=== PATIENT | female | born 1985 | race Caucasian/White ===

== ENCOUNTER 2016-04-20 20:26 | Emergency (ER) | payer BC ==
[2016-04-20] MEDS ORDERED: DIPH,PERTUSS,TET(ADACEL) VAC/PF 0.5 ML (Tdap) IM ONE (20:41)
--- NOTE | 2016-04-20 20:43 | PDOC ---
Skin Rash/Insect/Abscess HPI - General Chief Complaint: Laceration / Wound Stated Complaint: Finger Laceration Date Seen by Provider: 04/20/16 Time Seen by Provider: 20:42 Source: POSITIVE: Patient, Spouse Exam Limitations: POSITIVE: No limitations Nurse's Notes Reviewed & Considered: Yes - History of Present Illness Initial Comments: Patient comes in today with a laceration to the right fifth finger at the PIP joint. Tonight she was trying to separate dose to make cookies when her knife slipped and she lacerated her right DIP joint of the fifth finger. She has good range of motion and good sensation and good capillary. Have you received a tetanus shot in the past 10 years?: Unknown Body Location Affected: REPORTS: Upper Extremity (R) Timing: REPORTS: Abrupt Duration: 1/2 hour Severity: Mild Quality: REPORTS: "Pain", Sharpness When Exposed: REPORTS: Just Prior to Sx Onset Where Exposed: REPORTS: Home Suspected Etiology: REPORTS: Other Similar Symptoms Previously: No Recent Care Received: REPORTS: Denies Any Prior Injuries Related to Current Complaint?: No - Patient Home Medications Home Medications: Home Medications Levothyroxine Sodium [Synthroid Tab] 125 mcg PO DAILY 11/16/14 - Patient Allergies Allergies/Adverse Reactions: Allergies Allergy/AdvReac Type Severity Reaction Status Date / Time cefaclor [From Ceclor] Allergy Unknown UNSURE Verified 04/20/16 20:46 Penicillins Allergy Unknown UNSURE Verified 04/20/16 20:46 Sulfa (Sulfonamide AdvReac Intermediate UNSURE Verified 04/20/16 20:46 Antibiotics) Past Medical History - heen HEENT History: Denies History Cardiovascular History: Denies History Respiratory History: Denies History Gastrointestinal History: Gallbladder Disease Additional Gastrointestinal History: LAP KAREN Genitourinary History: Denies History Endocrine History: Hypothyroidism Additional Endocrine History: POSSIBLE HOSHIMOTOS Musculoskeletal History: Denies History Prosthesis or Implant: No Neurological History: Denies History Blood Disorders: Denies History Psychiatric History: Denies History History of Sexually Transmitted Diseases: No Cancer History: Denies History History of MDRO: Unknown History of Other Communicable Diseases: No Alcohol Use: Rarely Substance Use Type: None Previous Surgical History: Yes Type / Date of Surgery: GALL BLADDER Anesthesia Reactions: No Malignant Hyperthermia: No Significant Family History: No pertinent family hx Additional Family History: [place] [employer] PARENTS ROS - Limitations ROS Limitations: No Limitations Constitution: REPORTS: Denies Symptoms Cardiovascular: REPORTS: Denies Cardiac Symptoms Respiratory: REPORTS: Denies Resp Symptoms Neurological: REPORTS: Denies Neuro Symptoms Gastrointestinal: REPORTS: Denies GI Symptoms Endocrine: REPORTS: Denies Symptoms Musculoskeletal: REPORTS: Denies MS Symptoms Genitourinary: REPORTS: Denies Symptoms Eyes: REPORTS: Denies Symptoms ENT: REPORTS: Denies Symptoms Skin: REPORTS: Other (Laceration palmar aspect right fifth finger right hand. Laceration is 1 cm.) Lympathic: REPORTS: Denies Lympathic Symptoms Immunologic: POSITIVE: Denies Symptoms Psychiatric: POSITIVE: Denies Psych Symptoms Skin Rash/Insect/Abscess Exam - General Appearance General Appearance: REPORTS: Alert, Cooperative, No Acute Distress - Skin Skin: REPORTS: Warm, Dry, Normal Color, Other (Laceration to the palmar aspect fifth digit right PIP joint) - Extremities Extremity: Non-Tender: (All Extremities), Normal ROM: (All Extremities) Procedures - Laceration/Wound Repair Did patient have a laceration repair: Yes Site of Laceration/Wound: Right fifth finger palmar aspect PIP joint Wound Length (cm): 1 Wound's Depth, Shape: Superficial Time of Suture Placement:: 21:48 Distal CMS: Yes Skin Prep: Betadine Prep, Sterile Drapes Applied Local Anesthesia Used - Indicate Amt Used in Comment: Lidocaine 1%: Yes (3 mL) Wound Explored: Clean Wound Debrided: Minimal Wound Repaired With: Sutures single layer Suture Size/Type: 5:0 Number of Sutures: 3 Drain Placement: No Sterile Dressing Applied?: Yes Splint Applied?: No Sling Applied?: No Skin Rash/Abscess Progress - Patient's Progress Status: POSITIVE: Improved MDM / ED Course: Patient was examined, and soaked in Betadine tea. 1% lidocaine was infiltrated in a ring block at the base of the finger. After allowing adequate time for anesthetic to mature 3 interrupted 5-0 Surgipro sutures were placed with out difficulty resulting in excellent skin edge approximation and good hemostasis. The patient received instructions and wound care instructions to return in 7-10 days for suture removal. - Consult Counseled: POSITIVE: Patient, Family, RE: DX, RE: Need for F/U Patient Care Time - Estimated PCT Patient Care Time (In Minutes): 30 Vital Signs - VS Reviewed Vital Signs Reviewed: Yes Discharge Clinical Impression: Laceration - injury Discharge Disposition: Discharged to Home Condition: Good Patient Instructions Given at Discharge: Laceration (ED)
[2016-04-20] MEDS ORDERED: Lidocaine 1% 10 MG/ML - 20 ML VIAL SUBCUT ONE (21:20)
[2016-04-20] MEDS ORDERED: Lidocaine Inj 1% 20 ML ONE (21:23)
[2016-04-20 23:20] VITALS: RESP 18; TEMP 98.7
== END 2016-04-20 21:57 | disposition home or self-care (01) ==
LOC: ER 20:26
DX: S61.216A Laceration without foreign body of right little finger without damage to nail, initial encounter (principal); W26.0XXA Contact with knife, initial encounter
CPT/HCPCS: 12001; 90471; 99282; J2001

== ENCOUNTER → 2016-07-01 | Outpatient (CLI) | payer BC ==
[2016-07-01 09:36] LABS: FREE T4 (FREE THYROXINE) 1.27 ng/dL (0.93-1.71)
== END ==
LOC: LAB 07:36
PROVIDERS: ATTEND Nurse Practitioner Family
DX: E06.3 Autoimmune thyroiditis (principal)
CPT/HCPCS: 36415; 84439; 84443; 84481

== ENCOUNTER → 2016-09-11 | Outpatient (CLI) | payer BC ==
--- NOTE | 2016-09-11 11:45 | DI ---
XR FOOT COMPLETE MIN 3VW,09/11/2016 10:12 AM: Clinical History: Left foot pain Previous Exam: None at this facility. Findings: 3 views of the left foot are obtained, and demonstrate anatomic alignment without fractures. There is enthesopathy at the insertion of the plantar fascia. There is mild soft tissue swelling. Impression: Normal left foot.
--- NOTE | 2016-09-11 11:46 | DI ---
XR CALCANEUS MIN 2VW,09/11/2016 10:12 AM: Clinical History: Pain of the left heel Previous Exam: None at this facility. Findings: 3 views of the left calcaneus are obtained, and demonstrate anatomic alignment without fractures. The re is enthesopathy at the insertion of the Achilles tendon and the plantar fascia. Impression: Enthesophytes of the calcaneus without fractures.
== END ==
LOC: MOB RAD 10:12
PROVIDERS: ATTEND Physician Assistant
DX: M79.672 Pain in left foot (principal); Y93.64 Activity, baseball
CPT/HCPCS: 73630; 73650

== ENCOUNTER → 2016-09-19 | Outpatient (CLI) | payer BC | LOC: LAB 07:52 | PROVIDERS: ATTEND Nurse Practitioner Family | DX: E03.9 Hypothyroidism, unspecified (principal) | CPT/HCPCS: 36415; 84443 ==